=== PATIENT | female | born 1965 | race Caucasian/White ===

== ENCOUNTER 2018-09-10 16:56 | Emergency (ER) | payer MEDICAID, OTHER ==
[2018-09-10 17:12] VITALS: BP 190/106
--- NOTE | 2018-09-10 17:23 | EDM.PDOC ---
ED HPI GENERAL MEDICAL PROBLEM - General Chief Complaint: Lower Extremity Injury/Pain Stated Complaint: HURT LT ANKLE Time Seen by Provider: 09/10/18 17:10 Source of Information: Reports: Patient, Old Records, RN History Limitations: Reports: No Limitations - History of Present Illness INITIAL COMMENTS - FREE TEXT/NARRATIVE: Injured L lateral ankle before arrival. Here for evaluation. 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: Reports: Other (see below) (none) - Related Data Allergies Allergy/AdvReac Type Severity Reaction Status Date / Time No Known Allergies Allergy Verified 09/10/18 17:13 Home Meds: Home Meds Losartan/Hydrochlorothiazide [Losartan-HCTZ 50-12.5 MG] 1 tab PO DAILY 09/10/18 [History] Past Medical History - Past Health History Medical/Surgical History: Denies Medical/Surgical History HEENT History: Reports: Impaired Vision Respiratory History: Reports: Sleep Apnea Gastrointestinal History: Reports: Diverticulosis Other Gastrointestinal History: abdominal hernia 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: 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: Musculoskeletal History: Reports: Fracture, Osteoarthritis, Other (See Below) Other Musculoskeletal History: rotator cuff tear- no or Endocrine/Metabolic History: Reports: Obesity/BMI 30+ - Infectious Disease History Infectious Disease History: Reports: Chicken Pox - Past Surgical History HEENT Surgical History: Reports: Oral Surgery, Tonsillectomy GI Surgical History: Reports: Colon, Colonoscopy, Hernia, Abdominal, Hernia Repair/Other, Other (See Below) Female Surgical History: Reports: Ureteral Stent, Other (See Below) Musculoskeletal Surgical History: Reports: Hip Replacement Review of Systems - Review of Systems Review Of Systems: See Below Constitutional: Reports: No Symptoms Musculoskeletal: Reports: Joint Swelling (L ankle) Skin: Reports: No Symptoms Neurological: Reports: No Symptoms ED EXAM, GENERAL - Physical Exam Exam: See Below Exam Limited By: No Limitations General Appearance: Alert, WD/WN, No Apparent Distress, Obese Extremities: Pedal Edema (slight swelling of L lateral ankle), Joint Swelling ( slight swelling of L lateral ankle, no deformity.), Limited Range of Motion ( due to pain). No: Neha's Sign, Increased Warmth, Redness Neurological: Alert, Oriented, CN II-XII Intact, Normal Cognition, No Motor/ Sensory Deficits Psychiatric: Normal Affect, Normal Mood Skin Exam: Warm, Dry, Intact, Normal Color, No Rash Course - Vital Signs Text/Narrative:: Orthoglass posterior splint applied from foot to knee. 6 inch width 4 inch EDGARDO and 6 inch EDGARDO used to secure the splint. Crutches provided. Last Recorded V/S: Last Vital Signs Temp 37.1 C 09/10/18 17:16 Pulse 102 H 09/10/18 17:16 Resp 16 09/10/18 17:16 BP 190/106 H 09/10/18 17:16 Pulse Ox 98 09/10/18 17:16 - Orders/Labs/Meds Orders: Active Orders 24 hr Category Date Time Status Ankle Min 3V Lt [CR] Stat Exams 09/10/18 17:05 Taken Tibia Fibula Lt [CR] Stat Exams 09/10/18 17:22 Taken Meds: Medications Discontinued Medications Generic Name Dose Route Start Last Admin Trade Name Yoselyn PRN Reason Stop Dose Admin Hydromorphone HCl 2 mg 09/10/18 17:24 Dilaudid PO 09/10/18 17:25 NOW STA - Radiology Interpretation Free Text/Narrative:: L ankle K-vec-tdy-displaced distal fibula fx Tib/fib X-ray-neg Departure - Departure Time of Disposition: 18:00 Disposition: Home, Self-Care 01 Condition: Good Clinical Impression: Fracture of distal fibula Qualifiers: Encounter type: initial encounter Fracture type: closed Fracture morphology: other fracture Laterality: left Qualified Code(s): S82.832A - Other fracture of upper and lower end of left fibula, initial encounter for closed fracture - Discharge Information *PRESCRIPTION DRUG MONITORING PROGRAM REVIEWED*: No *COPY OF PRESCRIPTION DRUG MONITORING REPORT IN PATIENT JOSH: No Instructions: Cast or Splint Care, Adult, [id number] Referrals: PCP,None [Primary Care Provider] - Forms: ED Department Discharge Additional Instructions: Keep ankle/foot elevated when possible. Take Dilaudid for pain relief if ibuprofen and/or acetaminophen is insufficient. F/U with [facility] later in the week. Crutch walking and no weight bearing. - My Orders Last 24 Hours: My Active Orders 09/10/18 17:05 Ankle Min 3V Lt [CR] Stat 09/10/18 17:22 Tibia Fibula Lt [CR] Stat - Assessment/Plan Last 24 Hours: My Active Orders 09/10/18 17:05 Ankle Min 3V Lt [CR] Stat 09/10/18 17:22 Tibia Fibula Lt [CR] Stat
[2018-09-10] MEDS ORDERED: HYDROmorphone 2 MG Tab PO STA (17:24)
--- NOTE | 2018-09-10 18:35 | CRLCR ---
Indication: Fall, pain. Technique: Left ankle 3 views. Four films. Comparison: None Findings: Bones: There is an oblique fracture of the lateral malleolus without significant displacement at the joint line. Well-formed plantar and Achilles heel spurs. Joint spaces: Unremarkable. Soft tissues: Prominent soft tissue swelling. Multiple phleboliths noted. Impression: Oblique lateral malleolar fracture without significant displacement. Dictated by Tadeo Mckeon MD @ Sep 10 2018 6:31PM Signed by Dr. Tadeo Mckeon @ Sep 10 2018 6:33PM
--- NOTE | 2018-09-10 18:37 | CRLCR ---
Indication: Pain after fall Technique: Two views, 4 films left tibia and fibula. Comparison: None Findings: Distal fibular fracture redemonstrated. No proximal tibia or fibular fracture seen. Numerous phleboliths redemonstrated. Impression: No proximal tibial or fibular fracture. Please see ankle report for the distal fibular fracture. Dictated by Tadeo Mckeon MD @ Sep 10 2018 6:33PM Signed by Dr. Tadeo Mckeon @ Sep 10 2018 6:35PM
== END 2018-09-10 18:28 | disposition home or self-care (01) ==
LOC: JP.ED 16:56
DX: S82.832A Other fracture of upper and lower end of left fibula, initial encounter for closed fracture (principal); E66.9 Obesity, unspecified; X58.XXXA Exposure to other specified factors, initial encounter
CPT/HCPCS: 29515; 73590; 73610; 99283; 99284; A9270

== ENCOUNTER 2018-09-15 04:50 | Emergency (ER) | payer BC ==
[2018-09-15 05:09] VITALS: BP 192/102
--- NOTE | 2018-09-15 05:25 | EDM.PDOC ---
<Francisco Garcia G - Last Filed: 09/15/18 05:20> ED HPI GENERAL MEDICAL PROBLEM - General Chief Complaint: Gastrointestinal Problem Stated Complaint: THINKS SHE HAS THE FLU Time Seen by Provider: 09/15/18 05:10 Source of Information: Reports: Patient, Old Records, RN History Limitations: Reports: No Limitations - History of Present Illness INITIAL COMMENTS - FREE TEXT/NARRATIVE: 53 yo female presents with a few day hx of nausea and vomiting. Had a fever early on in her illness. No diarrhea. Has stomach cramping. Abdomen does not feel distended. Is here alone. Not aware of any exposures to this type of illness. Onset: Gradual Onset Date: 09/12/18 Duration: Day(s):, Constant Location: Reports: Abdomen Quality: Reports: Other (cramping) Severity: Moderate Improves with: Reports: None Worsens with: Reports: Eating Context: Reports: Other (see HPI) Associated Symptoms: Reports: Fever/Chills (now ? resolved), Nausea/Vomiting Treatments PATHOLOGY SECRETARY: Reports: Other (see below) (none) Other Treatments PATHOLOGY SECRETARY: none Epigastric Pain Score (Numeric/FACES): 8 - Related Data Allergies Allergy/AdvReac Type Severity Reaction Status Date / Time No Known Allergies Allergy Verified 09/15/18 05:09 Home Meds: Home Meds HYDROmorphone [Dilaudid] 2 mg PO Q6H PRN #10 tab 09/10/18 [Rx] Losartan/Hydrochlorothiazide [Losartan-HCTZ 50-12.5 MG] 1 tab PO DAILY 09/10/18 [History] Past Medical History - Past Health History Medical/Surgical History: Denies Medical/Surgical History HEENT History: Reports: Impaired Vision Respiratory History: Reports: Sleep Apnea Gastrointestinal History: Reports: Diverticulosis Other Gastrointestinal History: abdominal hernia 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: Musculoskeletal History: Reports: Fracture, Osteoarthritis, Other (See Below) Other Musculoskeletal History: L ankle Fx Endocrine/Metabolic History: Reports: Obesity/BMI 30+ - Infectious Disease History Infectious Disease History: Reports: Chicken Pox - Past Surgical History HEENT Surgical History: Reports: Oral Surgery, Tonsillectomy GI Surgical History: Reports: Colon, Colonoscopy, Hernia, Abdominal, Hernia Repair/Other, Other (See Below) Female Surgical History: Reports: Ureteral Stent, Other (See Below) Musculoskeletal Surgical History: Reports: Hip Replacement Social & Family History - Tobacco Use Smoking Status *Q: Never Smoker Second Hand Smoke Exposure: No - Caffeine Use Caffeine Use: Reports: Coffee, Soda - Recreational Drug Use Recreational Drug Use: No ED ROS GENERAL - Review of Systems Review Of Systems: See Below Constitutional: Reports: Malaise, Decreased Appetite HEENT: Reports: No Symptoms Respiratory: Reports: No Symptoms Cardiovascular: Reports: No Symptoms Endocrine: Reports: No Symptoms GI/Abdominal: Reports: Abdominal Pain (cramping), Decreased Appetite, Nausea, Vomiting. Denies: Black Stool, Bloody Stool, Constipation, Diarrhea, Distension , Hematemesis, Hematochezia, Melena : Reports: No Symptoms Musculoskeletal: Reports: No Symptoms Skin: Reports: No Symptoms Neurological: Reports: No Symptoms Psychiatric: Reports: No Symptoms ED EXAM, GI/ABD - Physical Exam Exam: See Below Exam Limited By: No Limitations General Appearance: Alert, WD/WN, No Apparent Distress, Obese Eyes: Bilateral: Normal Appearance Ears: Normal External Exam, Normal Canal, Hearing Grossly Normal Nose: Normal Inspection, Normal Mucosa, No Blood Throat/Mouth: Normal Inspection, Normal Lips, Normal Oropharynx, Normal Voice, No Airway Compromise Head: Atraumatic, Normocephalic Neck: Normal Inspection, Non-Tender Respiratory/Chest: No Respiratory Distress, Lungs Clear, Normal Breath Sounds, No Accessory Muscle Use Cardiovascular: Regular Rate, Rhythm, No Edema GI/Abdominal Exam: Soft, No Distention, Tender (diffuse). No: Non-Tender, Distended, Guarding, Rigid, Rebound Back Exam: Normal Inspection. No: CVA Tenderness (R), CVA Tenderness (L) Extremities: Normal Inspection, Normal Range of Motion, Non-Tender, No Pedal Edema Neurological: Alert, Oriented, CN II-XII Intact, Normal Cognition, No Motor/ Sensory Deficits Psychiatric: Normal Affect, Normal Mood Skin Exam: Warm, Dry, Intact, Normal Color, No Rash Course - Vital Signs Last Recorded V/S: Last Vital Signs Temp 98.7 F 09/15/18 05:03 Pulse 84 09/15/18 05:03 Resp 18 09/15/18 05:03 BP 192/102 H 09/15/18 05:03 Pulse Ox 98 09/15/18 05:03 - Orders/Labs/Meds Orders: Active Orders 24 hr Category Date Time Status Iopamidol [Isovue-300 (61%)] Med 09/15/18 08:07 Active 150 ml IV . DIRECTED PRN Lactated Ringers [Ringers, Lactated] 1,000 ml Med 09/15/18 08:38 Active IV BOLUS NS + KCl 20mEq/L [Normal Saline with 20 mEq KCl] 1,000 Med 09/15/18 06:15 Active ml IV ASDIRECTED Sodium Chloride 0.9% [Normal Saline] 85 ml Med 09/15/18 08:15 Active IV ASDIRECTED Medication Orders Potassium Chloride/Sodium Chloride (Normal Saline With 20 Meq Kcl) 1,000 mls @ 1,000 mls/hr IV ASDIRECTED LINO Last Admin: 09/15/18 06:14 Dose: 1,000 mls/hr Sodium Chloride (Normal Saline) 85 mls @ 3.5 mls/sec IV ASDIRECTED LINO Last Admin: 09/15/18 08:28 Dose: 3.5 mls/sec Lactated Ringer's (Ringers, Lactated) 1,000 mls @ 500 mls/hr IV BOLUS ONE Stop: 09/15/18 10:37 Last Admin: 09/15/18 08:42 Dose: 500 mls/hr Iopamidol (Isovue-300 (61%)) 150 ml IV . DIRECTED PRN PRN Reason: RADIOLOGY EXAM Stop: 09/16/18 08:08 Last Admin: 09/15/18 08:28 Dose: 150 ml Labs: Laboratory Tests 09/15/18 09/15/18 09/15/18 Range/Units 05:15 06:59 07:11 WBC 12.2 H (4.5-11.0) K/uL RBC 4.83 (3.30-5.50) M/uL Hgb 13.9 D (12.0-15.0) g/dL Hct 41.8 (36.0-48.0) % MCV 87 (80-98) fL MCH 29 (27-31) pg MCHC 33 (32-36) % Plt Count 261 (150-400) K/uL Sodium 131 L (140-148) mmol/L Potassium 3.4 L (3.6-5.2) mmol/L Chloride 94 L (100-108) mmol/L Carbon Dioxide 26 (21-32) mmol/L Anion Gap 14.4 H (5.0-14.0) mmol/L BUN 8 (7-18) mg/dL Creatinine 0.7 (0.6-1.0) mg/dL Est Cr Clr Drug Dosing 95.44 mL/min Estimated GFR (MDRD) > 60 (>60) Glucose 153 H (74-106) mg/dL Lactic Acid (0.4-2.0) mmol/L Calcium 9.3 (8.5-10.1) mg/dL Magnesium (1.8-2.4) mg/dL Total Bilirubin (0.2-1.0) mg/dL AST (15-37) U/L ALT (12-78) U/L Alkaline Phosphatase (46-116) U/L Troponin I (0.000-0.056) ng/mL C-Reactive Protein 15.34 H (0.0-0.3) mg/dL Total Protein (6.4-8.2) g/dL Albumin (3.4-5.0) g/dL Globulin (2.3-3.5) g/dL Albumin/Globulin Ratio (1.2-2.2) Lipase 80 (73-393) U/L 09/15/18 09/15/18 09/15/18 Range/Units 07:11 08:03 08:03 WBC (4.5-11.0) K/uL RBC (3.30-5.50) M/uL Hgb (12.0-15.0) g/dL Hct (36.0-48.0) % MCV (80-98) fL MCH (27-31) pg MCHC (32-36) % Plt Count (150-400) K/uL Sodium 131 L (140-148) mmol/L Potassium 3.4 L (3.6-5.2) mmol/L Chloride 94 L (100-108) mmol/L Carbon Dioxide 24 (21-32) mmol/L Anion Gap 16.4 H (5.0-14.0) mmol/L BUN 8 (7-18) mg/dL Creatinine 0.7 (0.6-1.0) mg/dL Est Cr Clr Drug Dosing 95.44 mL/min Estimated GFR (MDRD) > 60 (>60) Glucose 153 H (74-106) mg/dL Lactic Acid 2.0 (0.4-2.0) mmol/L Calcium 9.1 (8.5-10.1) mg/dL Magnesium 1.7 L (1.8-2.4) mg/dL Total Bilirubin 0.8 D (0.2-1.0) mg/dL AST 28 (15-37) U/L ALT 51 (12-78) U/L Alkaline Phosphatase 139 H (46-116) U/L Troponin I < 0.017 (0.000-0.056) ng/mL C-Reactive Protein (0.0-0.3) mg/dL Total Protein 7.5 (6.4-8.2) g/dL Albumin 3.0 L (3.4-5.0) g/dL Globulin 4.5 H (2.3-3.5) g/dL Albumin/Globulin Ratio 0.7 L (1.2-2.2) Lipase (73-393) U/L Meds: Medications Generic Name Dose Route Start Last Admin Trade Name Freq PRN Reason Stop Dose Admin Potassium Chloride/Sodium Chloride 1,000 mls @ 1,000 mls/hr 09/15/18 06:15 06:14 Normal Saline With 20 Meq Kcl IV 1,000 mls/hr ASDIRECTED LINO Administration Sodium Chloride 85 mls @ 3.5 mls/sec 09/15/18 08:15 09/15/18 08:28 Normal Saline IV 3.5 mls/sec ASDIRECTED LINO Administration Lactated Ringer's 1,000 mls @ 500 mls/hr 09/15/18 08:38 09/15/18 08:42 Ringers, Lactated IV 09/15/18 10:37 500 mls/hr BOLUS ONE Administration Iopamidol 150 ml 09/15/18 08:07 09/15/18 08:28 Isovue-300 (61%) IV 09/16/18 08:08 150 ml . DIRECTED PRN Administration RADIOLOGY EXAM Discontinued Medications Generic Name Dose Route Start Last Admin Trade Name Freq PRN Reason Stop Dose Admin Acetaminophen 1,000 mg 09/15/18 05:26 09/15/18 06:12 Tylenol Extra Strength PO 09/15/18 05:27 1,000 mg ONETIME ONE Administration Belladonna/Phenobarbital 10 ml 09/15/18 05:25 09/15/18 05:45 Elixir PO 09/15/18 05:26 10 ml ONETIME ONE Administration Fentanyl 50 mcg 09/15/18 08:02 09/15/18 08:10 Sublimaze IVPUSH 09/15/18 08:03 50 mcg ONETIME ONE Administration Hydromorphone HCl 0.5 mg 09/15/18 07:01 09/15/18 07:09 Dilaudid IVPUSH 09/15/18 07:02 0.5 mg ONETIME ONE Administration Lactated Ringer's 1,000 mls @ 1,000 mls/hr 09/15/18 05:14 09/15/18 05:26 Ringers, Lactated IV 09/15/18 06:13 1,000 mls/hr BOLUS ONE Administration Metoclopramide HCl 10 mg 09/15/18 05:15 09/15/18 05:28 Reglan IVPUSH 09/15/18 05:16 10 mg ONETIME ONE Administration Departure - Departure Disposition: Home, Self-Care 01 Clinical Impression: Pyelonephritis - Discharge Information Referrals: PCP,None [Primary Care Provider] - Forms: ED Department Discharge Additional Instructions: Take full course of antibiotics, Please followup with your primary care provider in 3-5 days if not better, please call return to the emergency department with worsening of symptoms. - My Orders Last 24 Hours: My Active Orders 09/15/18 08:07 Iopamidol [Isovue-300 (61%)] 150 ml IV . DIRECTED PRN 09/15/18 08:15 Sodium Chloride 0.9% [Normal Saline] 85 ml IV ASDIRECTED 09/15/18 08:38 Lactated Ringers [Ringers, Lactated] 1,000 ml IV BOLUS - Assessment/Plan Last 24 Hours: My Active Orders 09/15/18 08:07 Iopamidol [Isovue-300 (61%)] 150 ml IV . DIRECTED PRN 09/15/18 08:15 Sodium Chloride 0.9% [Normal Saline] 85 ml IV ASDIRECTED 09/15/18 08:38 Lactated Ringers [Ringers, Lactated] 1,000 ml IV BOLUS <OfficerRuben - Last Filed: 09/15/18 09:56> Departure - Departure Time of Disposition: 09:55 Condition: Fair - Assessment/Plan Plan: Assessment Acuity = acute Site and laterality = pyelonephritis left side Etiology = probable bacterial cause Manifestations = none Location of injury = Home Lab values = WBC elevated 12.2 consistent leukocytosis, lactic acid normal at 2.0 magnesium slightly low 1.7 consistent hypomagnesemia CRP of elevated at 15.3 lipase normal at 80 troponin was negative ultrasound shows no acute process the right upper quadrant CT scan consistent with pyelonephritis on the left side Plan Did review lab work and CT scan results with her elected treat with levofloxacin 500 mg by mouth daily 10 days follow-up primary care 3-5 days if no improvement This note was dictated using [employer] voice recognition software please call with any questions on syntax or grammar.
[2018-09-15] MEDS: Lactated Ringers 1,000 ML IV ONE ×2 (05:26→08:42)
[2018-09-15] MEDS: Metoclopramide 10 MG/2 ML SDV IVPUSH ONE (05:28)
[2018-09-15] MEDS: Atropine/Hyoscyamine/PHENobarbital/Scopolamine Elixir 10 ML UD PO ONE (05:45)
[2018-09-15] MEDS: Acetaminophen 500 MG Tab PO ONE (06:12)
[2018-09-15] MEDS: NS + KCl 20mEq/L 1,000 ML IV SCH (06:14)
[2018-09-15] MEDS: HYDROmorphone 0.5 MG/0.5 ML Syringe IVPUSH ONE (07:09)
[2018-09-15] MEDS: fentaNYL 100 MCG/2 ML SDV IVPUSH ONE (08:10)
[2018-09-15] MEDS: Iopamidol 612 MG/ML 150 ML Bottle IV PRN (08:28)
--- NOTE | 2018-09-15 09:10 | CRLUS ---
INDICATION: Right upper quadrant pain. Vomiting. TECHNIQUE: Transabdominal imaging. COMPARISON: None. FINDINGS: The pancreas is predominantly obscured by bowel gas. The liver is normal size and echogenicity. No appreciable intrahepatic lesions. No sludge or stones in the gallbladder. No gallbladder wall thickening. No bile duct dilatation. The CBD measures 4 mm. Right kidney is unremarkable. Limited evaluation of the infrahepatic IVC is unremarkable. No free fluid in the right upper quadrant. IMPRESSION: No evidence of cholelithiasis or acute cholecystitis. Dictated by Abdullahi Guerra MD @ 09/15/2018 9:09:57 AM Dictated by: Abdullahi Guerra MD @ 09/15/2018 09:10:02 (Electronically Signed)
--- NOTE | 2018-09-15 09:41 | CRLCT ---
INDICATION: Right upper quadrant pain. TECHNIQUE: Contiguous axial images were acquired through the abdomen and pelvis after the intravenous administration of contrast. Sagittal and coronal reconstructions. COMPARISON: None. FINDINGS: Lower chest: Normal heart size. No pericardial effusion. Lung bases are clear. No pleural fluid. Abdomen and pelvis: The liver, gallbladder and bile ducts, pancreas, spleen, adrenal glands, and right kidney are unremarkable. In the left kidney, there are 2 areas of non masslike, slightly decreased parenchymal attenuation. One is seen in the superior pole, with the other seen anteriorly in the midportion of the left kidney. There is mild perinephric fat stranding seen on the left. The appearance is most suggestive of pyelonephritis. No discrete fluid attenuation to suggest an abscess. Normal caliber abdominal aorta. Mild atherosclerotic changes. Incidental retroaortic left renal vein. No abnormally dilated bowel to suggest obstruction. Normal appendix. Prior partial sigmoid resection. Ventral hernia repair. No free air or free fluid. No lymphadenopathy by size criteria. Suboptimal evaluation of the pelvis due to artifact from hip hardware. Urinary bladder is grossly unremarkable. Bones: No acute abnormality. Bilateral total hip arthroplasties. IMPRESSION: 1. There are areas of abnormal attenuation seen in the left kidney, with associated mild perinephric fat stranding. Findings are most suggestive of pyelonephritis. Clinically correlate. 2. Incidental findings as noted. Dictated by Abdullahi Guerra MD @ 09/15/2018 9:39:51 AM Please note that all CT scans at this facility use dose modulation, iterative reconstruction, and/or weight-based dosing when appropriate to reduce radiation dose to as low as reasonably achievable. Dictated by: Abdullahi Guerra MD @ 09/15/2018 09:39:57 (Electronically Signed)
== END 2018-09-15 10:08 | disposition home or self-care (01) ==
LOC: JP.ED 04:50
DX: N12 Tubulo-interstitial nephritis, not specified as acute or chronic (principal)
CPT/HCPCS: 36415; 74177; 76705; 80048; 80053; 83605; 83690; 83735; 84484; 85027; 86140; 96361; 96374; 96375; 99284; A9270; J1170; J2765; J3010; J3480; J7030; J7120

== ENCOUNTER 2022-02-21 06:06 | Emergency (ER) | payer BC, OTHER ==
[2022-02-21 06:32] VITALS: BP 148/83; PULSE 89
== END 2022-02-21 06:47 | disposition home or self-care (01) ==
LOC: JP.ED 06:06
DX: J01.20 Acute ethmoidal sinusitis, unspecified (principal); H69.83 Other specified disorders of Eustachian tube, bilateral; I10 Essential (primary) hypertension; E66.9 Obesity, unspecified; Z68.42 Body mass index [BMI] 45.0-49.9, adult; Z20.822 Contact with and (suspected) exposure to COVID-19
CPT/HCPCS: 36415; 85025; 86140; 99282; 99283; U0002

== ENCOUNTER 2022-02-24 13:40 | Emergency (ER) | payer OTHER ==
[2022-02-24] MEDS ORDERED: Sodium Chloride 0.9% 10 ML Syringe FLUSH PRN (14:22)
[2022-02-24] MEDS ORDERED: Ketorolac 30 MG/ML SDV IVPUSH ONE (14:22)
[2022-02-24] MEDS ORDERED: Lactated Ringers 500 ML IV SCH (14:30)
[2022-02-24 15:09] LABS: ESTIMATED GFR 101 mL/min (>60)
[2022-02-24] MEDS ORDERED: Ondansetron 4 MG/2 ML SDV IVPUSH ONE (15:10)
[2022-02-24] MEDS ORDERED: HYDROmorphone 1 MG/ML Syringe IVPUSH ONE (15:12)
[2022-02-24 15:36] VITALS: BP 128/69; PULSE 67
== END 2022-02-24 17:44 | disposition home or self-care (01) ==
LOC: JP.ED 13:40
DX: R10.84 Generalized abdominal pain (principal); H66.002 Acute suppurative otitis media without spontaneous rupture of ear drum, left ear; I10 Essential (primary) hypertension; E66.9 Obesity, unspecified; Z68.42 Body mass index [BMI] 45.0-49.9, adult
CPT/HCPCS: 36415; 74176; 80053; 81001; 85025; 86140; 96361; 96374; 96375; 99284; J1170; J1885; J2405; J7120; 99282

== ENCOUNTER 2023-10-15 14:28 | Emergency (ER) | payer BC, OTHER ==
[2023-10-15 15:06] LABS: BASOPHILS ABSOLUTE AUTO 0.02 K/uL (0.00-0.10); BASOPHILS PERCENT AUTO 0.4 % (0.1-1.3); HEMATOCRIT 49.8 % (34.3-46.0); HEMOGLOBIN 16.7 g/dL (11.2-15.5); IMMATURE GRAN ABSOLUTE AUTO 0.01 K/uL (0.00-0.23); IMMATURE GRAN PERCENT AUTO 0.2 % (0.0-0.7); LYMPHOCYTES ABSOLUTE AUTO 1.11 K/uL (0.8-3.3); LYMPHOCYTES PERCENT AUTO 24.3 % (11.4-47.7); MEAN CORPUSCULAR HEMOGLOBIN 29.6 pg (31.6-35.5); MEAN CORPUSCULAR HGB CONC 33.5 g/dL (31.6-35.5); MEAN CORPUSCULAR VOLUME 88.3 fL (81.4-99.0); MONOCYTES PERCENT AUTO 10.9 % (3.3-12.6); NEUTROPHILS ABSOLUTE AUTO 2.93 K/uL (1.0-7.6); NEUTROPHILS PERCENT AUTO 64.2 % (40.0-78.1); PLATELET COUNT,PLT 251 K/uL (130-375); RED BLOOD CELL COUNT 5.64 M/uL (3.77-5.24); WHITE BLOOD CELL COUNT,WBC 4.6 K/uL (3.2-11.0)
[2023-10-15] MEDS: Ondansetron 4 MG/2 ML SDV IVPUSH ONE (15:17)
[2023-10-15] MEDS: fentaNYL 100 MCG/2 ML SDV IVPUSH ONE (15:17)
[2023-10-15] MEDS: Lactated Ringers 1,000 ML IV SCH (15:18)
[2023-10-15] MEDS: Sodium Chloride 0.9% 10 ML Syringe FLUSH PRN ×2 (15:18→16:05)
[2023-10-15 15:19] LABS: A/G RATIO 0.9 (1.2-2.2); ALANINE AMINOTRANSFERASE,ALT 42 U/L (12-78); ALBUMIN 3.9 g/dL (3.4-5.0); ALKALINE PHOSPHATASE 111 U/L (46-116); ANION GAP 16.8 mmol/L (5.0-14.0); ASPARTATE AMNIOTRANSFERASE,AST 36 U/L (15-37); BILIRUBIN TOTAL 0.5 mg/dL (0.2-1.0); BLOOD UREA NITROGEN,BUN 8 mg/dL (7-18); CALCIUM 9.2 mg/dL (8.5-10.1); CARBON DIOXIDE,CO2 26 mmol/L (21-32); CHLORIDE,CL 95 mmol/L (100-108); CREATININE 0.8 mg/dL (0.6-1.0); EST CRCL DRUG DOSING (CG) 77.32 mL/min; ESTIMATED GFR 85 mL/min (>60); GLUCOSE RANDOM 142 mg/dL (74-106); POTASSIUM,K 3.8 mmol/L (3.6-5.2); PROTEIN TOTAL,TP 8.5 g/dL (6.4-8.2); SODIUM,NA 134 mmol/L (140-148); TROPONIN I HIGH SENSITIVITY 10.8 pg/mL (<=60.3)
[2023-10-15] MEDS: Sodium Chloride 0.9% 100 ML IV SCH (16:04)
[2023-10-15] MEDS: Iopamidol 612 MG/ML 100 ML Bottle IV SCH (16:04)
[2023-10-15 16:33] LABS: APPEARANCE,URINE CLEAR (CLEAR); BILIRUBIN,URINE NEGATIVE (NEGATIVE); COLOR,URINE YELLOW (YELLOW); GLUCOSE,URINE 100 mg/dL (NEGATIVE); KETONES,URINE 40 mg/dL (NEGATIVE); LEUKOCYTE ESTERASE,URINE NEGATIVE (NEGATIVE); NITRITE,URINE NEGATIVE (NEGATIVE); OCCULT BLOOD,URINE SMALL (NEGATIVE); PROTEIN,URINE NEGATIVE (NEGATIVE); UROBILINOGEN,URINE 0.2 EU/dL (0.2-1.0)
[2023-10-15 16:39] LABS: AMORPHOUS SEDIMENT,URINE NOT SEEN; BACTERIA,URINE NOT SEEN; EPITHELIAL CELLS,URINE RARE; MUCUS,URINE NOT SEEN; RBC,URINE 0-5 (0-5); WBC,URINE NOT SEEN (0-5)
[2023-10-15] MEDS: droPERidol 5 MG/2 ML SDV IVPUSH ONE (17:17)
[2023-10-15] MEDS: HYDROmorphone 0.5 MG/0.5 ML Syringe IVPUSH ONE (17:17)
[2023-10-15 17:22] VITALS: BP 192/92; PULSE 62
== END 2023-10-15 17:56 | disposition home or self-care (01) ==
LOC: JP.ED 14:28
DX: K52.9 Noninfective gastroenteritis and colitis, unspecified (principal); I10 Essential (primary) hypertension; E66.9 Obesity, unspecified; Z86.19 Personal history of other infectious and parasitic diseases; Z68.41 Body mass index [BMI] 40.0-44.9, adult
CPT/HCPCS: 36415; 74177; 80053; 81001; 83605; 83690; 84484; 85025; 96361; 96374; 96375; 99284; J1170; J1790; J2405; J3010; J3490; J7120; Q9967